=== PATIENT | male | born 1935 | race Caucasian/White ===

== ENCOUNTER 2023-08-14 08:50 | Inpatient (IN) | payer OTHER ==
[~2023-08-14] VITALS: Ht 175.3 cm; Wt 63.5 kg
[2023-08-14 09:27] VITALS: BP 132/76; PULSE 89; RESP 18; TEMP 98; O2SAT 98
[2023-08-14 10:53] LABS: BASOPHILS % (AUTO) 0.4 % (0.0-2.0); EOSINOPHILS # (AUTO) 0.1 K/uL (0-0.4); HEMATOCRIT 41.4 % (36-52); HEMOGLOBIN 13.8 g/dL (12.0-18.0); LYMPHOCYTES % (AUTO) 29.2 % (20.5-51.1); MEAN CORPUSCULAR HEMOGLOBIN 32 pg (27-31); MEAN CORPUSCULAR HGB CONC 33 g/dL (33-37); MONOCYTES # (AUTO) 0.5 K/uL (0.8-1.0); MONOCYTES % (AUTO) 7.7 % (1.7-9.3); NEUTROPHILS # (AUTO) 4.1 K/uL (1.8-7.7); NEUTROPHILS % (AUTO) 60.7 % (42.2-75.2); PLATELET COUNT (AUTO) 205 K/uL (140-450); RED BLOOD CELL COUNT(AUTO) 4.31 MIL/uL (4.20-6.10); RED CELL DISTRIBUTION WIDTH 18.8 % (11.6-13.7); WHITE BLOOD COUNT (AUTO) 6.8 K/uL (4.8-10.8)
[2023-08-14 11:18] LABS: CALCIUM 9.2 mg/dL (8.5-10.1); CARBON DIOXIDE 26.5 mmol/L (21-32); CHLORIDE 103 mmol/L (98-107); CREATININE 2.4 mg/dL (0.6-1.3); GLUCOSE 347 mg/dL (74-106); POTASSIUM 4.5 mmol/L (3.5-5.1); SODIUM SERUM 137 mmol/L (136-145); UREA NITROGEN, BLOOD 42 mg/dL (7-18)
[2023-08-14 11:20] LABS: ALBUMIN 2.7 g/dL (3.4-5.0); BILIRUBIN,DIRECT 0.1 mg/dL (0.0-0.3); TOTAL BILIRUBIN 0.4 mg/dL (0.0-1.0); TOTAL PROTEIN, SERUM 7.8 g/dL (6.4-8.2)
[2023-08-14 11:30] LABS: APPEARANCE,URINE CLEAR (CLEAR); BILIRUBIN,URINE NEGATIVE (NEGATIVE); BLOOD, URINE TRACE-I (NEGATIVE); COLOR,URINE YELLOW (YELLOW); LEUKOCYTE ESTERASE ,URINE NEGATIVE (NEGATIVE); NITRITE, URINE NEGATIVE (NEGATIVE); PROTEIN,URINE 2+ (NEGATIVE); UGLUCOSE 3+ (NEGATIVE); UROBILINOGEN,URINE 0.2 EU/dL (0.2 - 1)
[2023-08-14 11:33] LABS: BACTERIA,URINE OCCASSIONAL /HPF (None Seen); RBC,URINE 0-5 /HPF (0-5); SQUAMOUS EPITHELIAL CELL,UR 0-3 (FEW) /LPF (0-3 (FEW)); WBC,URINE 0-5 /HPF (0-5)
[2023-08-14] MEDS ORDERED: MAG SULF 2000 MG/WATER PREMIX 50 ML IV PRN (12:20)
[2023-08-14] MEDS ORDERED: MORPHINE SULFATE 2 MG/ML SYR IVP PRN (12:20)
[2023-08-14] MEDS ORDERED: POTASSIUM CHLORIDE 10 MEQ TABER PO PRN (12:20)
[2023-08-14] MEDS ORDERED: ACETAMINOPHEN 325 MG TAB PO PRN (12:20)
[2023-08-14] MEDS ORDERED: HYDROcodone/APAP 5/325 MG 1 TAB TAB PO PRN (12:20)
[2023-08-14] MEDS ORDERED: KCL 20 MEQ IN 100 mL PREMIX 200 ML IV PRN (12:20)
[2023-08-14] MEDS ORDERED: LEVE100021 PO (19:28)
[2023-08-14] MEDS ORDERED: CALC0.2527 PO (19:28)
[2023-08-14] MEDS ORDERED: SENN-74 PO (19:28)
[2023-08-14] MEDS ORDERED: ALFU10TE10 PO (19:28)
[2023-08-14] MEDS ORDERED: CLOP75TA55 PO (19:28)
[2023-08-14] MEDS ORDERED: SULF-954 PO (19:28)
[2023-08-14] MEDS ORDERED: ACET-9534 PO (19:28)
[2023-08-14] MEDS ORDERED: MIRT-33 PO (19:28)
[2023-08-14] MEDS ORDERED: INSU100I7 SUBQ (19:28)
[2023-08-14] MEDS ORDERED: FERR-15 PO (19:28)
[2023-08-14] MEDS ORDERED: LEVO0.1T19 PO (19:28)
[2023-08-14] MEDS ORDERED: NIRM1TAB5 PO (19:28)
[2023-08-14] MEDS ORDERED: METO-744 PO (19:28)
[2023-08-14] MEDS ORDERED: ATOR80TA27 PO (19:28)
[2023-08-14] MEDS ORDERED: ASPI-1856 PO (19:28)
[2023-08-14] MEDS ORDERED: DEXTROSE 50% 50 ML SYR IVP PRN (20:40)
[2023-08-14 20:45] VITALS: PULSE 70; RESP 18; O2SAT 95
[2023-08-14] MEDS: BLOOD GLUCOSE MONITORING 1 DEV DEV FS SCH (21:59)
[2023-08-14] MEDS: INSULIN LISPRO SLIDING SCALE 100 UNITS/ML VIAL SUBQ PRN (22:03)
[2023-08-14] MEDS ORDERED: hydrALAZINE 20 MG/ML VIAL IVP PRN (22:25)
[2023-08-15 04:00] VITALS: BP 113/55; PULSE 99; RESP 18; TEMP 97.3; O2SAT 95
[2023-08-15 06:09] LABS: BASOPHILS % (AUTO) 0.4 % (0.0-2.0); EOSINOPHILS # (AUTO) 0.2 K/uL (0-0.4); EOSINOPHILS % (AUTO) 2.4 % (0.0-4.0); HEMATOCRIT 39.3 % (36-52); HEMOGLOBIN 13.4 g/dL (12.0-18.0); LYMPHOCYTES # (AUTO) 1.6 K/uL (2.0-11.5); LYMPHOCYTES % (AUTO) 26.1 % (20.5-51.1); MEAN CORPUSCULAR HEMOGLOBIN 32 pg (27-31); MEAN CORPUSCULAR HGB CONC 34 g/dL (33-37); MEAN CORPUSCULAR VOLUME 94.7 fL (80-94); MONOCYTES # (AUTO) 0.6 K/uL (0.8-1.0); NEUTROPHILS # (AUTO) 3.8 K/uL (1.8-7.7); NEUTROPHILS % (AUTO) 61.1 % (42.2-75.2); PLATELET COUNT (AUTO) 201 K/uL (140-450); RED BLOOD CELL COUNT(AUTO) 4.15 MIL/uL (4.20-6.10); RED CELL DISTRIBUTION WIDTH 18.1 % (11.6-13.7); WHITE BLOOD COUNT (AUTO) 6.3 K/uL (4.8-10.8)
[2023-08-15 06:33] LABS: ALANINE AMINOTRANSFERASE 26 U/L (12-78); ALBUMIN 2.5 g/dL (3.4-5.0); ALKALINE PHOSPHATASE 164 U/L (50-136); ANION GAP 13.6 (8-16); ASPARTATE AMINOTRANSFERASE 20 U/L (15-37); CALCIUM 9.1 mg/dL (8.5-10.1); CARBON DIOXIDE 24.4 mmol/L (21-32); CHLORIDE 106 mmol/L (98-107); GLUCOSE 175 mg/dL (74-106); MAGNESIUM 1.4 mg/dL (1.8-2.4); SODIUM SERUM 140 mmol/L (136-145); TOTAL BILIRUBIN 0.4 mg/dL (0.0-1.0); TOTAL PROTEIN, SERUM 7.5 g/dL (6.4-8.2); UREA NITROGEN, BLOOD 46 mg/dL (7-18)
[2023-08-15] MEDS: BLOOD GLUCOSE MONITORING 1 DEV DEV FS SCH ×4 (06:48→21:15)
[2023-08-15] MEDS: INSULIN LISPRO SLIDING SCALE 100 UNITS/ML VIAL SUBQ PRN ×4 (06:49→21:14)
[2023-08-15 08:00] VITALS: BP 138/72; PULSE 64; RESP 20; TEMP 96.9; O2SAT 100
[2023-08-15] MEDS: FERROUS SULFATE 325 MG TABEC PO SCH (08:33)
[2023-08-15] MEDS: ECOTRIN 81 MG TABEC PO SCH (08:33)
[2023-08-15] MEDS: CLOPIDOGREL 75 MG TAB PO SCH (08:33)
[2023-08-15] MEDS: LEVOTHYROXINE 0.1 MG TAB PO SCH (08:34)
[2023-08-15] MEDS: ATORVASTATIN 80 MG TAB PO SCH (08:34)
[2023-08-15] MEDS: MIRTAZAPINE 15 MG TAB PO SCH (08:34)
[2023-08-15] MEDS: METOPROLOL SUCCINATE 50 MG TABER PO SCH (08:34)
[2023-08-15] MEDS ORDERED: NON-FORMULARY ITEM (Metoprolol Succinate (Metoprolol Succinate Er) 1 TAB) PO SCH (09:00)
[2023-08-15 09:31] VITALS: PULSE 64; RESP 20; O2SAT 100
[2023-08-15 12:00] VITALS: BP 153/71; PULSE 62; RESP 20; TEMP 97; O2SAT 99
[2023-08-15 16:00] VITALS: BP 148/69; PULSE 60; RESP 20; TEMP 97.7; O2SAT 100
[2023-08-15 20:00] VITALS: BP 125/46; PULSE 66; RESP 18; RESP 20; TEMP 98.2; O2SAT 100; O2SAT 97
[2023-08-16 04:00] VITALS: BP 143/61; PULSE 57; RESP 18; TEMP 96.8; O2SAT 98
[2023-08-16] MEDS: LEVOTHYROXINE 0.1 MG TAB PO SCH (06:04)
[2023-08-16] MEDS: INSULIN LISPRO SLIDING SCALE 100 UNITS/ML VIAL SUBQ PRN ×4 (06:11→20:15)
[2023-08-16] MEDS: BLOOD GLUCOSE MONITORING 1 DEV DEV FS SCH ×4 (06:15→20:11)
[2023-08-16 07:26] LABS: ALANINE AMINOTRANSFERASE 22 U/L (12-78); ALBUMIN 2.3 g/dL (3.4-5.0); ALKALINE PHOSPHATASE 138 U/L (50-136); ANION GAP 10.4 (8-16); ASPARTATE AMINOTRANSFERASE 17 U/L (15-37); CALCIUM 8.7 mg/dL (8.5-10.1); CHLORIDE 103 mmol/L (98-107); CREATININE 2.1 mg/dL (0.6-1.3); GLUCOSE 250 mg/dL (74-106); MAGNESIUM 1.6 mg/dL (1.8-2.4); POTASSIUM 4.4 mmol/L (3.5-5.1); SODIUM SERUM 136 mmol/L (136-145); TOTAL BILIRUBIN 0.4 mg/dL (0.0-1.0); TOTAL PROTEIN, SERUM 6.9 g/dL (6.4-8.2); UREA NITROGEN, BLOOD 48 mg/dL (7-18)
[2023-08-16 07:34] LABS: BASOPHILS % (AUTO) 0.5 % (0.0-2.0); EOSINOPHILS # (AUTO) 0.2 K/uL (0-0.4); EOSINOPHILS % (AUTO) 3.5 % (0.0-4.0); HEMATOCRIT 38.4 % (36-52); HEMOGLOBIN 12.9 g/dL (12.0-18.0); LYMPHOCYTES # (AUTO) 2.1 K/uL (2.0-11.5); LYMPHOCYTES % (AUTO) 35.6 % (20.5-51.1); MEAN CORPUSCULAR HEMOGLOBIN 32 pg (27-31); MEAN CORPUSCULAR HGB CONC 34 g/dL (33-37); MEAN CORPUSCULAR VOLUME 94.8 fL (80-94); MONOCYTES # (AUTO) 0.6 K/uL (0.8-1.0); MONOCYTES % (AUTO) 9.8 % (1.7-9.3); NEUTROPHILS # (AUTO) 3.1 K/uL (1.8-7.7); NEUTROPHILS % (AUTO) 50.6 % (42.2-75.2); PLATELET COUNT (AUTO) 189 K/uL (140-450); RED BLOOD CELL COUNT(AUTO) 4.05 MIL/uL (4.20-6.10); RED CELL DISTRIBUTION WIDTH 18.7 % (11.6-13.7)
[2023-08-16 08:00] VITALS: BP 135/81; PULSE 76; RESP 18; RESP 20; TEMP 97.2; O2SAT 100
[2023-08-16] MEDS: FERROUS SULFATE 325 MG TABEC PO SCH (08:23)
[2023-08-16] MEDS: ECOTRIN 81 MG TABEC PO SCH (08:24)
[2023-08-16] MEDS: ATORVASTATIN 80 MG TAB PO SCH (08:24)
[2023-08-16] MEDS: MIRTAZAPINE 15 MG TAB PO SCH (08:24)
[2023-08-16] MEDS: CLOPIDOGREL 75 MG TAB PO SCH (08:24)
[2023-08-16] MEDS: METOPROLOL SUCCINATE 50 MG TABER PO SCH (08:24)
[2023-08-16] MEDS: MAGNESIUM OXIDE 400 MG TAB PO PRN (08:25)
[2023-08-16 16:00] VITALS: BP 103/64; PULSE 64; RESP 18; TEMP 97.7; O2SAT 99
[2023-08-16 20:00] VITALS: BP 141/63; PULSE 70; PULSE 76; RESP 18; RESP 20; TEMP 97.2; O2SAT 100
[2023-08-17] MEDS: LEVOTHYROXINE 0.1 MG TAB PO SCH (06:20)
[2023-08-17] MEDS: BLOOD GLUCOSE MONITORING 1 DEV DEV FS SCH ×2 (06:26→12:16)
[2023-08-17] MEDS: INSULIN LISPRO SLIDING SCALE 100 UNITS/ML VIAL SUBQ PRN ×2 (06:26→12:17)
[2023-08-17 06:58] LABS: BASOPHILS % (AUTO) 0.4 % (0.0-2.0); EOSINOPHILS # (AUTO) 0.2 K/uL (0-0.4); HEMATOCRIT 40.4 % (36-52); HEMOGLOBIN 13.5 g/dL (12.0-18.0); LYMPHOCYTES # (AUTO) 1.9 K/uL (2.0-11.5); LYMPHOCYTES % (AUTO) 29.1 % (20.5-51.1); MEAN CORPUSCULAR HEMOGLOBIN 32 pg (27-31); MEAN CORPUSCULAR HGB CONC 34 g/dL (33-37); MEAN CORPUSCULAR VOLUME 94.6 fL (80-94); MONOCYTES # (AUTO) 0.7 K/uL (0.8-1.0); MONOCYTES % (AUTO) 10.5 % (1.7-9.3); NEUTROPHILS # (AUTO) 3.6 K/uL (1.8-7.7); PLATELET COUNT (AUTO) 197 K/uL (140-450); RED BLOOD CELL COUNT(AUTO) 4.27 MIL/uL (4.20-6.10); RED CELL DISTRIBUTION WIDTH 18.5 % (11.6-13.7); WHITE BLOOD COUNT (AUTO) 6.4 K/uL (4.8-10.8)
[2023-08-17 07:16] LABS: ALANINE AMINOTRANSFERASE 21 U/L (12-78); ALBUMIN 2.5 g/dL (3.4-5.0); ALKALINE PHOSPHATASE 148 U/L (50-136); ANION GAP 14.1 (8-16); ASPARTATE AMINOTRANSFERASE 18 U/L (15-37); CALCIUM 9.1 mg/dL (8.5-10.1); CARBON DIOXIDE 25.8 mmol/L (21-32); CHLORIDE 101 mmol/L (98-107); CREATININE 1.9 mg/dL (0.6-1.3); GLUCOSE 256 mg/dL (74-106); MAGNESIUM 1.6 mg/dL (1.8-2.4); POTASSIUM 4.9 mmol/L (3.5-5.1); SODIUM SERUM 136 mmol/L (136-145); TOTAL BILIRUBIN 0.4 mg/dL (0.0-1.0); TOTAL PROTEIN, SERUM 7.6 g/dL (6.4-8.2); UREA NITROGEN, BLOOD 44 mg/dL (7-18)
[2023-08-17 08:00] VITALS: BP 158/81; PULSE 66; RESP 17; TEMP 97.2; O2SAT 100
[2023-08-17] MEDS: FERROUS SULFATE 325 MG TABEC PO SCH (08:40)
[2023-08-17] MEDS: MAGNESIUM OXIDE 400 MG TAB PO PRN (08:40)
[2023-08-17] MEDS: CLOPIDOGREL 75 MG TAB PO SCH (08:40)
[2023-08-17] MEDS: MIRTAZAPINE 15 MG TAB PO SCH (08:41)
[2023-08-17] MEDS: ATORVASTATIN 80 MG TAB PO SCH (08:41)
[2023-08-17] MEDS: ECOTRIN 81 MG TABEC PO SCH (08:41)
[2023-08-17] MEDS: METOPROLOL SUCCINATE 50 MG TABER PO SCH (08:42)
== END 2023-08-17 17:00 | DRG 683 ==
LOC: MED 08:50 → MMU 12:21 → MTU 18:54
PROVIDERS: ADMIT Internal Medicine; ATTEND Internal Medicine
DX: N17.9 Acute kidney failure, unspecified (principal); E44.0 Moderate protein-calorie malnutrition; I12.9 Hypertensive chronic kidney disease with stage 1 through stage 4 chronic kidney disease, or unspecified chronic kidney disease; Z20.822 Contact with and (suspected) exposure to COVID-19; N18.9 Chronic kidney disease, unspecified; E78.00 Pure hypercholesterolemia, unspecified; E11.22 Type 2 diabetes mellitus with diabetic chronic kidney disease; Z86.73 Personal history of transient ischemic attack (TIA), and cerebral infarction without residual deficits; Z79.899 Other long term (current) drug therapy; Z79.82 Long term (current) use of aspirin; Z79.02 Long term (current) use of antithrombotics/antiplatelets; E83.42 Hypomagnesemia; Z68.20 Body mass index [BMI] 20.0-20.9, adult
CPT/HCPCS: 36415; 80048; 80053; 80076; 81001; 82948; 83735; 85025; 87081; 92526; 97110; 97112; 97116; 97163-GP; 97530; 99285; J0360; J1644; J1815; J3475

== ENCOUNTER 2023-11-30 09:40 | Inpatient (IN) | payer OTHER ==
[~2023-11-30] VITALS: Ht 177.8 cm; Wt 90.7 kg
[~2023-11-30 09:40] MED LIST: ACET-9534 PO; ALFU10TE10 PO; ASPI-1856 PO; ATOR80TA27 PO; CALC0.2527 PO; CLOP75TA55 PO; FERR-15 PO; INSU100I7 SUBQ; LEVE100021 PO; LEVO0.1T19 PO; METO25TE47 PO; MIRT-33 PO; SENN-74 PO; SULF-954 PO
[2023-11-30 10:03] VITALS: BP 126/42; PULSE 91; RESP 21; TEMP 97.8; O2SAT 99
[2023-11-30 10:46] LABS: APPEARANCE,URINE CLEAR (CLEAR); BILIRUBIN,URINE NEGATIVE (NEGATIVE); BLOOD, URINE NEGATIVE (NEGATIVE); COLOR,URINE YELLOW (YELLOW); LEUKOCYTE ESTERASE ,URINE NEGATIVE (NEGATIVE); NITRITE, URINE NEGATIVE (NEGATIVE); PROTEIN,URINE 1+ (NEGATIVE); UGLUCOSE NEGATIVE (NEGATIVE); UROBILINOGEN,URINE 0.2 EU/dL (0.2 - 1)
[2023-11-30 10:48] LABS: BASOPHILS % (AUTO) 0.3 % (0.0-2.0); EOSINOPHILS # (AUTO) 0.1 K/uL (0-0.4); EOSINOPHILS % (AUTO) 1.6 % (0.0-4.0); LYMPHOCYTES # (AUTO) 1.5 K/uL (2.0-11.5); LYMPHOCYTES % (AUTO) 23.3 % (20.5-51.1); MEAN CORPUSCULAR HEMOGLOBIN 22 pg (27-31); MEAN CORPUSCULAR HGB CONC 31 g/dL (33-37); MONOCYTES # (AUTO) 0.6 K/uL (0.8-1.0); MONOCYTES % (AUTO) 9.9 % (1.7-9.3); NEUTROPHILS # (AUTO) 4.1 K/uL (1.8-7.7); NEUTROPHILS % (AUTO) 64.9 % (42.2-75.2); PLATELET COUNT (AUTO) 251 K/uL (140-450); RED BLOOD CELL COUNT(AUTO) 2.92 MIL/uL (4.20-6.10); RED CELL DISTRIBUTION WIDTH 19.5 % (11.6-13.7); WHITE BLOOD COUNT (AUTO) 6.3 K/uL (4.8-10.8)
[2023-11-30 10:50] LABS: BACTERIA,URINE OCCASSIONAL /HPF (None Seen); RBC,URINE NONE SEEN /HPF (0-5); SQUAMOUS EPITHELIAL CELL,UR 4-10 (MOD) /LPF (0-3 (FEW))
[2023-11-30 10:55] LABS: HEMOGLOBIN 6.4 g/dL (12.0-18.0)
[2023-11-30 11:24] LABS: ALANINE AMINOTRANSFERASE 18 U/L (12-78); ALKALINE PHOSPHATASE 117 U/L (50-136); ANION GAP 16.1 (8-16); ASPARTATE AMINOTRANSFERASE 14 U/L (15-37); CALCIUM 7.7 mg/dL (8.5-10.1); CARBON DIOXIDE 24.4 mmol/L (21-32); CHLORIDE 105 mmol/L (98-107); CREATININE 2.6 mg/dL (0.6-1.3); GLUCOSE 162 mg/dL (74-106); LIPASE 86 U/L (16-77); POTASSIUM 4.5 mmol/L (3.5-5.1); SODIUM SERUM 141 mmol/L (136-145); TOTAL BILIRUBIN 0.5 mg/dL (0.0-1.0); UREA NITROGEN, BLOOD 48 mg/dL (7-18)
[2023-11-30 11:39] LABS: INR 1.02 (0.8-1.2); PARTIAL THROMBOPLASTIN TIME 20.1 secs (22-35.6); PROTHROMBIN TIME 10.7 secs (10.8-13.4)
[2023-11-30] MEDS ORDERED: cefTRIAXone 1,000 MG VIAL ONE (12:22)
[2023-11-30] MEDS: ACETAMINOPHEN EXTRA STRENGTH 500 MG TAB PO ONE (12:32)
[2023-11-30] MEDS ORDERED: KCL 20 MEQ IN 100 mL PREMIX 200 ML IV PRN (12:45)
[2023-11-30] MEDS ORDERED: MORPHINE SULFATE 2 MG/ML SYR IVP PRN (12:45)
[2023-11-30] MEDS ORDERED: POTASSIUM CHLORIDE 10 MEQ TABER PO PRN (12:45)
[2023-11-30] MEDS: NACL 0.9% 1,000 ML IV SCH (14:19)
[2023-11-30 21:35] VITALS: PULSE 78; RESP 18; O2SAT 98
[2023-11-30] MEDS ORDERED: DEXTROSE 50% 50 ML SYR IVP PRN (23:30)
[2023-12-01 04:00] VITALS: BP 110/53; PULSE 71; RESP 18; TEMP 97.8; O2SAT 98
[2023-12-01 06:19] LABS: BASOPHILS % (AUTO) 0.6 % (0.0-2.0); EOSINOPHILS # (AUTO) 0.1 K/uL (0-0.4); EOSINOPHILS % (AUTO) 2.3 % (0.0-4.0); HEMATOCRIT 20.8 % (36-52); LYMPHOCYTES # (AUTO) 1.2 K/uL (2.0-11.5); LYMPHOCYTES % (AUTO) 21.5 % (20.5-51.1); MEAN CORPUSCULAR HEMOGLOBIN 23 pg (27-31); MEAN CORPUSCULAR HGB CONC 31 g/dL (33-37); MONOCYTES # (AUTO) 0.6 K/uL (0.8-1.0); MONOCYTES % (AUTO) 11.9 % (1.7-9.3); NEUTROPHILS # (AUTO) 3.4 K/uL (1.8-7.7); NEUTROPHILS % (AUTO) 63.7 % (42.2-75.2); PLATELET COUNT (AUTO) 211 K/uL (140-450); RED BLOOD CELL COUNT(AUTO) 2.81 MIL/uL (4.20-6.10); RED CELL DISTRIBUTION WIDTH 19.6 % (11.6-13.7); WHITE BLOOD COUNT (AUTO) 5.4 K/uL (4.8-10.8)
[2023-12-01] MEDS: BLOOD GLUCOSE MONITORING 1 DEV DEV FS SCH (06:34)
[2023-12-01 06:43] LABS: HEMOGLOBIN 6.5 g/dL (12.0-18.0)
[2023-12-01 06:52] LABS: ALANINE AMINOTRANSFERASE 12 U/L (12-78); ALBUMIN 2.4 g/dL (3.4-5.0); ALKALINE PHOSPHATASE 85 U/L (50-136); ANION GAP 15.9 (8-16); ASPARTATE AMINOTRANSFERASE 11 U/L (15-37); CARBON DIOXIDE 21.9 mmol/L (21-32); CHLORIDE 108 mmol/L (98-107); CREATININE 2.2 mg/dL (0.6-1.3); GLUCOSE 123 mg/dL (74-106); MAGNESIUM 1.5 mg/dL (1.8-2.4); POTASSIUM 3.8 mmol/L (3.5-5.1); SODIUM SERUM 142 mmol/L (136-145); TOTAL BILIRUBIN 0.7 mg/dL (0.0-1.0); TOTAL PROTEIN, SERUM 5.7 g/dL (6.4-8.2); UREA NITROGEN, BLOOD 42 mg/dL (7-18)
[2023-12-01 08:00] VITALS: BP 121/62; PULSE 70; RESP 18; TEMP 97.9; O2SAT 100
[2023-12-01] MEDS ORDERED: PANTOPRAZOLE 40 MG INJ VIAL IVP SCH (09:00)
[2023-12-01] MEDS ORDERED: NON-FORMULARY ITEM (Alfuzosin HCl (Alfuzosin HCl ER) 1 TAB) PO SCH (09:00)
[2023-12-01] MEDS ORDERED: LEVETIRACETAM PO SCH (09:00)
[2023-12-01] MEDS: ATORVASTATIN 80 MG TAB PO SCH (09:19)
[2023-12-01] MEDS: LEVOTHYROXINE 0.1 MG TAB PO SCH (09:20)
[2023-12-01] MEDS: PANTOPRAZOLE 40 MG INJ VIAL IVP SCH (09:20)
[2023-12-01] MEDS: LACTULOSE 20 GM/30 ML UDC PO SCH (14:29)
[2023-12-01] MEDS: SENNA 8.6 MG TAB PO SCH (14:30)
[2023-12-01] MEDS: POLYETHYLENE GLYCOL 17 GM/PKT PO SCH (14:30)
[2023-12-01] MEDS: MAG SULF 2000 MG/WATER PREMIX 50 ML IV PRN (14:31)
[2023-12-01] MEDS: POTASSIUM CHLORIDE 20% 40 MEQ/15 ML UDC GT SCH (14:37)
[2023-12-01 16:00] VITALS: BP 124/58; PULSE 84; RESP 18; TEMP 97.8; O2SAT 100
[2023-12-01] MEDS: INSULIN LISPRO SLIDING SCALE 100 UNITS/ML VIAL SUBQ PRN (16:40)
[2023-12-01 18:21] LABS: HEMATOCRIT 28.2 % (36-52); HEMOGLOBIN 8.7 g/dL (12.0-18.0)
[2023-12-01 19:40] VITALS: PULSE 80
[2023-12-01 19:41] VITALS: BP 131/58; PULSE 80; RESP 18; TEMP 98.3; O2SAT 100
[2023-12-01 20:00] VITALS: PULSE 80; RESP 18; O2SAT 100
[2023-12-01] MEDS: levETIRAcetam 500 MG TAB PO SCH (20:33)
[2023-12-01] MEDS: MIRTAZAPINE 15 MG TAB PO SCH (20:33)
[2023-12-01] MEDS: MEDS-TO-BEDS MC SCH (20:33)
[2023-12-02 04:00] VITALS: BP 135/61; PULSE 78; RESP 18; TEMP 98; O2SAT 100
[2023-12-02 06:49] LABS: BASOPHILS % (AUTO) 0.4 % (0.0-2.0); EOSINOPHILS # (AUTO) 0.1 K/uL (0-0.4); EOSINOPHILS % (AUTO) 2.1 % (0.0-4.0); HEMATOCRIT 29.9 % (36-52); HEMOGLOBIN 9.3 g/dL (12.0-18.0); LYMPHOCYTES # (AUTO) 0.8 K/uL (2.0-11.5); LYMPHOCYTES % (AUTO) 10.9 % (20.5-51.1); MEAN CORPUSCULAR HEMOGLOBIN 24 pg (27-31); MEAN CORPUSCULAR VOLUME 76.5 fL (80-94); MONOCYTES # (AUTO) 0.4 K/uL (0.8-1.0); MONOCYTES % (AUTO) 5.9 % (1.7-9.3); NEUTROPHILS # (AUTO) 5.6 K/uL (1.8-7.7); NEUTROPHILS % (AUTO) 80.7 % (42.2-75.2); PLATELET COUNT (AUTO) 248 K/uL (140-450); RED BLOOD CELL COUNT(AUTO) 3.91 MIL/uL (4.20-6.10); RED CELL DISTRIBUTION WIDTH 19.6 % (11.6-13.7); WHITE BLOOD COUNT (AUTO) 6.9 K/uL (4.8-10.8)
[2023-12-02 07:26] LABS: MEAN CORPUSCULAR HGB CONC 31 g/dL (33-37)
[2023-12-02 07:29] LABS: ALANINE AMINOTRANSFERASE 18 U/L (12-78); ALBUMIN 2.9 g/dL (3.4-5.0); ALKALINE PHOSPHATASE 94 U/L (50-136); ANION GAP 14.7 (8-16); ASPARTATE AMINOTRANSFERASE 13 U/L (15-37); CALCIUM 7.4 mg/dL (8.5-10.1); CARBON DIOXIDE 22.2 mmol/L (21-32); CHLORIDE 107 mmol/L (98-107); GLUCOSE 141 mg/dL (74-106); MAGNESIUM 1.9 mg/dL (1.8-2.4); POTASSIUM 3.9 mmol/L (3.5-5.1); SODIUM SERUM 140 mmol/L (136-145); TOTAL BILIRUBIN 0.4 mg/dL (0.0-1.0); UREA NITROGEN, BLOOD 31 mg/dL (7-18)
[2023-12-02 08:00] VITALS: BP 116/57; PULSE 78; PULSE 79; RESP 18; TEMP 97.6; O2SAT 93
[2023-12-02] MEDS ORDERED: ALFUZOSIN HCL PO SCH (09:00)
[2023-12-02] MEDS: ATORVASTATIN 80 MG TAB ONE (09:25)
[2023-12-02] MEDS: levETIRAcetam 500 MG TAB ONE (09:26)
[2023-12-02] MEDS: HYDROcodone/APAP 5/325 MG 1 TAB TAB PO PRN (09:50)
[2023-12-02] MEDS: fentaNYL citrate 0.05 MG/ML VIAL ONE (11:56)
[2023-12-02] MEDS: diphenhydrAMINE 50 MG/ML VIAL ONE (11:56)
[2023-12-02] MEDS: MIDAZOLAM 5 MG/5 ML VIAL ONE (11:56)
[2023-12-02] MEDS: MIDAZOLAM 5 MG/5 ML VIAL IV ONE (13:07)
[2023-12-02] MEDS: fentaNYL citrate 0.05 MG/ML VIAL IVP ONE (13:08)
[2023-12-02] MEDS: PANTOPRAZOLE 40 MG INJ VIAL IVP SCH (14:20)
[2023-12-02] MEDS: DEXT 5% / NACL 0.45% 1,000 ML IV SCH (15:41)
[2023-12-02 20:00] VITALS: BP 139/56; PULSE 78; RESP 18; RESP 19; TEMP 97.7; O2SAT 100
[2023-12-02] MEDS: TAMSULOSIN 0.4 MG CAP PO SCH (20:45)
[2023-12-02] MEDS: metroNIDAZOLE 500 MG/NS PREMIX 100 ML IV SCH (20:45)
[2023-12-03] MEDS ORDERED: LEVOTHYROXINE 0.1 MG TAB PO SCH (06:30)
[2023-12-03 06:52] LABS: BASOPHILS % (AUTO) 0.3 % (0.0-2.0); EOSINOPHILS # (AUTO) 0.2 K/uL (0-0.4); EOSINOPHILS % (AUTO) 3.7 % (0.0-4.0); HEMATOCRIT 28.6 % (36-52); LYMPHOCYTES # (AUTO) 0.7 K/uL (2.0-11.5); LYMPHOCYTES % (AUTO) 9.9 % (20.5-51.1); MEAN CORPUSCULAR HEMOGLOBIN 24 pg (27-31); MEAN CORPUSCULAR HGB CONC 31 g/dL (33-37); MEAN CORPUSCULAR VOLUME 76.2 fL (80-94); MONOCYTES # (AUTO) 0.6 K/uL (0.8-1.0); MONOCYTES % (AUTO) 9.2 % (1.7-9.3); NEUTROPHILS # (AUTO) 5.1 K/uL (1.8-7.7); NEUTROPHILS % (AUTO) 76.9 % (42.2-75.2); PLATELET COUNT (AUTO) 225 K/uL (140-450); RED BLOOD CELL COUNT(AUTO) 3.75 MIL/uL (4.20-6.10); RED CELL DISTRIBUTION WIDTH 19.6 % (11.6-13.7); WHITE BLOOD COUNT (AUTO) 6.7 K/uL (4.8-10.8)
[2023-12-03 07:23] LABS: ALANINE AMINOTRANSFERASE 25 U/L (12-78); ALBUMIN 2.6 g/dL (3.4-5.0); ALKALINE PHOSPHATASE 89 U/L (50-136); ANION GAP 16.3 (8-16); ASPARTATE AMINOTRANSFERASE 26 U/L (15-37); CALCIUM 7.3 mg/dL (8.5-10.1); CARBON DIOXIDE 20.3 mmol/L (21-32); CHLORIDE 107 mmol/L (98-107); GLUCOSE 192 mg/dL (74-106); MAGNESIUM 1.7 mg/dL (1.8-2.4); POTASSIUM 3.6 mmol/L (3.5-5.1); SODIUM SERUM 140 mmol/L (136-145); TOTAL BILIRUBIN 0.5 mg/dL (0.0-1.0); TOTAL PROTEIN, SERUM 6.3 g/dL (6.4-8.2); UREA NITROGEN, BLOOD 25 mg/dL (7-18)
[2023-12-03 08:00] VITALS: BP 122/51; PULSE 76; RESP 18; TEMP 97.3; O2SAT 100
[2023-12-03] MEDS: POLYETHYLENE GLYCOL 17 GM/PKT PO SCH (09:07)
[2023-12-03] MEDS: MAGNESIUM OXIDE 400 MG TAB PO PRN (10:55)
[2023-12-03] MEDS: ACETAMINOPHEN 325 MG TAB PO PRN (10:57)
[2023-12-03] MEDS ORDERED: PANT40EC56 PO (15:27)
[2023-12-03 16:00] VITALS: BP 145/73; PULSE 74; RESP 18; TEMP 98.3; O2SAT 100
[2023-12-03] MEDS ORDERED: FAMOTIDINE 20 MG TAB PO SCH (21:00)
[2023-12-04] MEDS ORDERED: LACTULOSE 20 GM/30 ML UDC PO SCH (09:00)
== END 2023-12-03 18:15 | DRG 377 ==
LOC: MED 09:40 → MMU 12:47 → MTU 20:47
PROVIDERS: ADMIT Internal Medicine; ATTEND Internal Medicine
PROC: 30233N1 Transfusion of Nonautologous Red Blood Cells into Peripheral Vein, Percutaneous Approach (ICD-10-PCS; principal; 2023-11-30)
PROC: 0W3P8ZZ Control Bleeding in Gastrointestinal Tract, Via Natural or Artificial Opening Endoscopic (ICD-10-PCS; 2023-12-02)
PROC: 0DB68ZX Excision of Stomach, Via Natural or Artificial Opening Endoscopic, Diagnostic (ICD-10-PCS; 2023-12-02 10:40)
PROC: 0DBM8ZZ Excision of Descending Colon, Via Natural or Artificial Opening Endoscopic (ICD-10-PCS; 2023-12-02 10:40)
DX: K55.21 Angiodysplasia of colon with hemorrhage (principal); N17.0 Acute kidney failure with tubular necrosis; D62 Acute posthemorrhagic anemia; N39.0 Urinary tract infection, site not specified; K57.32 Diverticulitis of large intestine without perforation or abscess without bleeding; K29.60 Other gastritis without bleeding; E78.5 Hyperlipidemia, unspecified; E11.9 Type 2 diabetes mellitus without complications; K57.30 Diverticulosis of large intestine without perforation or abscess without bleeding; E11.22 Type 2 diabetes mellitus with diabetic chronic kidney disease; I12.9 Hypertensive chronic kidney disease with stage 1 through stage 4 chronic kidney disease, or unspecified chronic kidney disease; N18.9 Chronic kidney disease, unspecified; Z79.899 Other long term (current) drug therapy; K64.8 Other hemorrhoids
CPT/HCPCS: 36415; 36430; 70450; 71045; 72125; 73562; 74150; 80053; 81001; 82948; 83690; 83735; 84484; 85018; 85025; 85610; 85730; 86677; 86886; 86900; 86901; 86920; 87081; 87086; 88304; 93005; 96365; 97110; 97116; 97163-GP; 97530; 99291; C9113; J0696; J1200; J1815; J2250; J3010; J3475; J3490; J7030; J7060; P9016